=== PATIENT | female | born 1995 | race Two or more races ===

== ENCOUNTER 2025-09-17 14:46 | Emergency (ER) | payer OTHER ==
[~2025-09-17] VITALS: Ht 157.5 cm; Wt 95.3 kg
[2025-09-17] MEDS ORDERED: DEXAMETHASONE SODIUM PHOSPHATE 4 MG/ML VIAL IM STA (15:31)
[2025-09-17] MEDS ORDERED: ACETAMINOPHEN 500 MG GEL..CAP PO ONE ×2 (15:45→15:57)
[2025-09-17] MEDS ORDERED: DEXAMETHASONE SODIUM PHOSPHATE 4 MG/ML VIAL ONE (15:57)
[2025-09-17 16:06] LABS: BASO % 0.2 % (0.1-1.2); EOS # 0.00 (0.04-0.54); EOS % 0.0 % (0.7-7.0); LYMPH # 0.72 (1.18-3.74); LYMPH % 4.7 % (19.3-53.1); MEAN PLATELET VOLUME 9.60 fl (9.4-12.4); MONO # 0.89 (0.24-0.82); MONO % 5.8 % (4.7-12.5); NEUT # 13.60 (1.56-6.13); NEUT % 88.6 % (34.0-71.1); RED CELL DISTRIBUTION WIDTH 16.1 % (11.6-14.4)
[2025-09-17 16:37] LABS: COVID-19 AG NEGATIVE (NEGATIVE)
[2025-09-17] MEDS ORDERED: CEPACOL SORE T1 EAC1 PO (16:41)
[2025-09-17] MEDS ORDERED: AMOX1TAB5 PO (16:41)
[2025-09-17 17:58] VITALS: BP 106/72; O2SAT 98
== END 2025-09-17 18:00 | disposition home or self-care (01) ==
LOC: ER 14:46
PROVIDERS: General Practice
DX: J02.9 Acute pharyngitis, unspecified (principal); R50.9 Fever, unspecified; D72.828 Other elevated white blood cell count; Z20.822 Contact with and (suspected) exposure to COVID-19; R53.81 Other malaise